=== PATIENT | female | born 1985 | race Two or more races ===

== ENCOUNTER 2018-07-20 10:35 | Inpatient (IN) | payer OTHER ==
[~2018-07-20] VITALS: Ht 162.6 cm; Wt 83.9 kg
[~2018-07-20 10:35] MED LIST: DOCUSATE SODIU100 MG PO; NAPROXEN 250 MG PO; PRENATE ADVANCE PO
[2018-08-02] MEDS ORDERED: SYNTHROID88 MCG PO (09:39)
[2018-08-02] MEDS ORDERED: PRENATAL TABLE1 EAC1 (09:39)
[2018-08-04] MEDS ORDERED: IBUPROFEN400 MG PO (07:04)
[2018-08-04] MEDS ORDERED: PREPLUS CA-FE1 EACH PO (07:04)
[2018-08-04] MEDS ORDERED: DOCUSATE SODIU100 MG PO (07:04)
[2018-08-04] MEDS ORDERED: Dermoplast SPRAY TOP (07:04)
[2018-08-04] MEDS ORDERED: LEVOTHYROXINE88 MCG PO (07:04)
== END 2018-08-04 11:27 | disposition home or self-care (01) | DRG 807 ==
LOC: OB/GYN 07-30 10:34 → SURG-SUITE 08-02 08:17 → LDR 08-02 08:17 → SURG-SUITE 08-02 15:28
PROVIDERS: ADMIT Obstetrics & Gynecology
PROC: 10E0XZZ Delivery of Products of Conception, External Approach (ICD-10-PCS; principal; 2018-08-02)
PROC: 0HQ9XZZ Repair Perineum Skin, External Approach (ICD-10-PCS; 2018-08-02)
PROC: 10907ZC Drainage of Amniotic Fluid, Therapeutic from Products of Conception, Via Natural or Artificial Opening (ICD-10-PCS; 2018-08-02)
PROC: 3E033VJ Introduction of Other Hormone into Peripheral Vein, Percutaneous Approach (ICD-10-PCS; 2018-08-02)
PROC: 4A1HXCZ Monitoring of Products of Conception, Cardiac Rate, External Approach (ICD-10-PCS; 2018-08-02)
DX: O70.0 First degree perineal laceration during delivery (principal); Z37.0 Single live birth; O99.284 Endocrine, nutritional and metabolic diseases complicating childbirth; E03.8 Other specified hypothyroidism; Z3A.40 40 weeks gestation of pregnancy; Z22.330 Carrier of Group B streptococcus